=== PATIENT | male | born 2005 | race Caucasian/White ===

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

== ENCOUNTER 2024-04-22 07:53 | Outpatient (REF) | payer BC, SELFPAY ==
[2024-04-22 23:41] LABS: Campylobacter PCR Negative (Negative); Salmonella PCR Negative (Negative); Shiga Toxin PCR Negative (Negative); Shigella/Enteroinvasive Ecoli Negative (Negative)
[2024-04-27 00:29] LABS: Calprotectin <50.0 mcg/g
== END 2024-04-22 07:54 | disposition home or self-care (01) ==
LOC: LBN 07:53
PROVIDERS: Visit Provider Pediatrics
DX: K50.818 Crohn's disease of both small and large intestine with other complication (principal); R19.7 Diarrhea, unspecified
CPT/HCPCS: 87493; 87505; 83630; 83993; 87177

== ENCOUNTER 2024-10-24 12:12 | Outpatient (CLI) | payer BC, SELFPAY ==
[2024-10-24 11:46] LABS: Abs Immature Grans 0.01 10^3/uL (0.0-0.06); Absolute Basophil Count 0.06 10^3/uL (0.0-0.2); Absolute Eosinophil Count 0.72 10^3/uL (0.0-0.7); Absolute Lymphocyte Count 2.36 10^3/uL (1.2-3.4); Absolute Monocyte Count 0.52 10^3/uL (0.1-0.8); Absolute Neutrophil Count 3.44 10^3/uL (1.2-6.7); Basophils % 0.8 %; Eosinophils % 10.1 %; HCT 46.2 % (40.0-50.0); HGB 15.3 g/dL (13.5-17.5); Immature Grans % 0.1 %; Lymphocytes % 33.2 %; MCH 30.1 pg (27.0-33.0); MCHC 33.1 % (32.0-36.0); MCV 91 fL (80-95); MPV 8.9 fL (8.0-11.0); Monocytes % 7.3 %; Neutrophils % 48.5 %; Platelet Count 237 10^3/uL (130-400); RBC 5.08 10^6/uL (4.36-5.78); RDW 12.2 % (11.8-14.1); RDW-SD 40.7 fL; WBC 7.11 10^3/uL (4.4-10.8)
[2024-10-24 12:01] LABS: ESR 1 mm/hr (0-15)
[2024-10-24 13:35] LABS: Iron 126 ug/dL (65-175); Total Iron Binding Capacity 308 ug/dL (250-450); Transferrin Sat 41 % (20-55)
[2024-10-24 13:59] LABS: ALT 18 U/L (16-63); AST 16 U/L (15-37); Albumin 4.4 g/dL (3.4-5.0); Alkaline Phosphatase 93 U/L (46-116); Anion Gap 5.3 mmol/L (3-11); BUN 13 mg/dL (7-18); Bilirubin, Total 0.43 mg/dL (0.2-1.0); CO2 31.7 mmol/L (21.0-32.0); Calcium 9.7 mg/dL (8.5-10.1); Chloride 100 mmol/L (98-107); Ferritin 129 ng/mL (26-388); Folate 3.2 ng/mL (8.6-20.0); Glucose 87 mg/dL (74-106); Potassium 4.1 mmol/L (3.5-5.1); Sodium 137 mmol/L (136-145); Total Protein 8.3 g/dL (6.4-8.2); Vitamin B12 324 pg/mL (193-986); Vitamin D 25 Total 23.5 ng/mL (30-100)
[2024-10-24 14:35] LABS: C-Reactive Protein < 0.50 mg/dL (<or=0.5)
== END 2024-10-24 12:13 | disposition home or self-care (01) ==
LOC: LBO 12:51
PROVIDERS: Visit Provider Pediatrics Pediatric Gastroenterology
DX: K50.919 Crohn's disease, unspecified, with unspecified complications (principal)
CPT/HCPCS: 36415; 80053; 82306; 85652; 82607; 82728; 82746; 83540; 83550; 85025; 86140

== ENCOUNTER 2025-06-26 13:30 | Outpatient (CLI) | payer OTHER, SELFPAY ==
[2025-06-26 13:38] LABS: Abs Immature Grans 0.02 10^3/uL (0.0-0.06); HCT 50.1 % (40.0-50.0); HGB 17.2 g/dL (13.5-17.5); Immature Grans % 0.2 %; MCH 31.2 pg (27.0-33.0); MCHC 34.3 % (32.0-36.0); MCV 91 fL (80-95); MPV 9.0 fL (8.0-11.0); Platelet Count 248 10^3/uL (130-400); RBC 5.51 10^6/uL (4.36-5.78); RDW 11.8 % (11.8-14.1); RDW-SD 39.4 fL; WBC 8.55 10^3/uL (4.4-10.8)
[2025-06-26 14:05] LABS: ESR < 1 mm/hr (0-15)
[2025-06-26 14:36] LABS: ALT 26 U/L (16-63); AST 17 U/L (15-37); Albumin 4.3 g/dL (3.4-5.0); Alkaline Phosphatase 77 U/L (46-116); Anion Gap 7.5 mmol/L (3-11); BUN 21 mg/dL (7-18); Bilirubin, Total 1.1 mg/dL (0.2-1.0); CO2 29.5 mmol/L (21.0-32.0); Calcium 9.5 mg/dL (8.5-10.1); Chloride 101 mmol/L (98-107); Estimated GFR 125.39 (mL/min/1.73m2); Ferritin 228 ng/mL (26-388); Folate 5.8 ng/mL (8.6-20.0); Glucose 95 mg/dL (74-106); Potassium 4.5 mmol/L (3.5-5.1); Sodium 138 mmol/L (136-145); Total Protein 8.1 g/dL (6.4-8.2); Vitamin B12 328 pg/mL (193-986); Vitamin D 25 Total 29 ng/mL (30-100)
[2025-06-26 15:07] LABS: Iron 283 ug/dL (65-175); Total Iron Binding Capacity 343 ug/dL (250-450); Transferrin Sat 83 % (20-55)
[2025-06-26 17:52] LABS: C-Reactive Protein < 0.50 mg/dL (<or=0.5)
[2025-06-29 16:25] LABS: Adalimumab QN with Reflex Ab 12.1 mcg/mL
== END 2025-06-26 13:31 | disposition home or self-care (01) ==
LOC: LBO 13:31
PROVIDERS: Visit Provider Pediatrics Pediatric Gastroenterology
DX: K50.813 Crohn's disease of both small and large intestine with fistula (principal)
CPT/HCPCS: 36415; 80053; 82306; 83520; 85652; 82607; 82728; 82746; 83540; 83550; 85025; 86140

== ENCOUNTER 2025-10-24 16:35 | Emergency (ER) | payer OTHER, SELFPAY ==
[2025-10-24] VITALS (9 sets, daily range): BP systolic 142–157; BP diastolic 64–80; PULSE 73–123; RESP 12–25; TEMP 36.7; O2SAT 97–99
--- NOTE | 2025-10-24 18:00 | DI.CT_ITS ---
Exam(s) CT PELVIC W EXAM: CT PELVIC W CLINICAL HISTORY: perirectal abscess, hx of fistula. TECHNIQUE: Imaging Protocol: Axial computed tomography images with coronal and sagittal reformatted images were created and reviewed. CONTRAST MATERIAL: Intravenous: Omnipaque 350 Contrast volume: 75 ml Contrast route:IV - Oral: no COMPARISON: No exams were available for comparison FINDINGS: Bladder: No gross wall thickening. No stones.No evidence of mass. Bowel: No obstruction or bowel wall thickening. Peritoneal cavity: No ascites, collection or mesenteric inflammatory response. Reproductive: Unremarkable. Vasculature: No evidence of aortic or iliac artery aneurysm. Bones: No acute findings. Soft tissues: There is a right-sided Gaviota rectal abscess measuring 2.2 x 5.2 x 2.5 cm extending inferior from the perirectal region into the right gluteal fold. There is some edema more inferiorly in the right gluteal fold. IMPRESSION: Right-sided perirectal abscess measuring 2.2 x 5.2 x 2.5 cm. No abnormality seen within the pelvis. Findings called to the ER provider. RADIATION DOSE DELIVERED: Total DLP DATA REPOSITORY: All CT scans at this facility are submitted to the National Radiology Data Registry (NRDR) Dose Index Registry (DIR) with the [employer] ([employer]). RADIATION OPTIMIZATION: All CT scans at this facility use at least one of these dose optimization techniques: automated exposure control; mA and/or kV adjustment per patient size (includes targeted exams where dose is matched to clinical indication); or iterative reconstruction.
[2025-10-24 18:37] LABS: Abs Immature Grans 0.04 10^3/uL (0.0-0.06); HCT 44.2 % (40.0-50.0); HGB 14.9 g/dL (13.5-17.5); Immature Grans % 0.3 %; MCH 30.1 pg (27.0-33.0); MCHC 33.7 % (32.0-36.0); MCV 89 fL (80-95); MPV 8.9 fL (8.0-11.0); Platelet Count 245 10^3/uL (130-400); RBC 4.95 10^6/uL (4.36-5.78); RDW 11.9 % (11.8-14.1); RDW-SD 38.5 fL; WBC 12.17 10^3/uL (4.4-10.8)
[2025-10-24] MEDS: Omnipaque 350 MG/ML 100 ML BTL IJ (18:42)
[2025-10-24] MEDS: Normal Saline Flush 10 ML SYR IVP (18:42)
[2025-10-24] MEDS: Normal Saline - Diluent 50 ML VIAL IJ (18:42)
[2025-10-24 18:48] LABS: ESR 9 mm/hr (0-15)
[2025-10-24 18:55] LABS: Lipase 36 U/L (<53)
[2025-10-24 18:56] LABS: C-Reactive Protein 3.54 mg/dL (<=0.50)
[2025-10-24 18:57] LABS: ALT 12 U/L (10-49); AST 16 U/L (<34); Albumin 4.7 g/dL (3.2-5.0); Alkaline Phosphatase 78 U/L (46-116); Anion Gap 6.4 mmol/L (3-11); BUN 11 mg/dL (9-23); Bilirubin, Total 0.60 mg/dL (0.2-1.2); CO2 29.6 mmol/L (20.0-31.0); Calcium 9.9 mg/dL (8.3-10.6); Chloride 103 mmol/L (98-107); Glucose 95 mg/dL (74-106); Potassium 3.6 mmol/L (3.5-5.1); Sodium 139 mmol/L (136-145); Total Protein 7.9 g/dL (5.7-8.2)
--- NOTE | 2025-10-24 19:13 | ED.GENADUL_ITS ---
Discharge Plan Disposition Patient Disposition: Home Condition: Stable Discharge Details Clinical Impression: Perirectal abscess Primary Care Provider: Unknown,Unknown ED Provider: Ford Samson Home Meds and New Rx's Prescriptions: New ciprofloxacin HCl 500 mg tablet 500 mg PO BID 7 Days Qty: 14 0RF metronidazole 500 mg tablet 500 mg PO TID 7 Days Qty: 21 0RF No Action adalimumab-adbm 40 mg/0.4 mL pen injector kit 40 mg SUBCUT Q14D Discharge Instructions Instructions: Ciprofloxacin (Systemic), Metronidazole (Systemic), Abscess Incision and Drainage ED Additional Instructions: You were seen in the emergency department for a perirectal abscess in the setting of chronic Crohn's disease, we are starting you on 2 different antibiotics to treat any further exacerbations of this abscess to prevent worsening infection, you underwent incision and drainage by general surgery here in the ER under conscious sedation, they placed some packing in the abscess cavity, please remove this packing tomorrow night by just pulling on the tail that is hanging out, you need to follow-up with GI and colorectal surgery for chronic care of this problem, return to the ER for any worsening signs of infection like fever, nausea vomiting. Stand Alone Forms: Portal Information Discharge Data Discharge Date/Time-TO BE ENTERED AT DEPARTURE: 10/24/25 21:07 HPI General Date/Time Provider Initiated Documentation: 10/24/25 16:59 . HPI Narrative: 20 year-old male presents to ED today by POV/ambulating with his mother with a chief complaint of possible perirectal abscess in complex Crohn's history with onset for the past 9 months at site of an old fistula with Seton drain. Quality described as painful area to R buttcheek, no radiation to fever, constipation, active drainage, abdominal pain, nausea/vomiting. Severity is described as severe to palpation. Palliating factors include nothing specific. Provoking factors include sitting, pressure to area. Events leading up to the incident/Associated Symptoms: Patient is in process of switching from pediatric GI at [facility] to adult, and does attend college far from [place] and is home for break. Patient not anticoagulated. Related Data Home Medications Medication Instructions Recorded Confirmed adalimumab-adbm 40 mg/0.4 mL 40 mg subcut Q14D 10/24/ 5 10/24/25 subcutaneous pen kit ciprofloxacin HCl 500 mg tablet 500 mg PO BID 7 days # 14 tabs 10/24/25 metronidazole 500 mg tablet 500 mg PO TID 7 days #21 t abs 10/24/25 Previous Rx's Medication Instructions Recorded ciprofloxacin HCl 500 mg tablet 500 mg PO BID 7 days # 14 tabs 10/24/25 metronidazole 500 mg tablet 500 mg PO TID 7 days #21 t abs 10/24/25 Allergies Allergy/AdvReac Type Severity Reaction Status Date / Time No Known Allergies Allergy Unverified 10/24/25 16:59 General Stated Complaint: Cellulitis KRISTAN: 3 Review of Systems All systems reviewed & are unremarkable except as noted in HPI and below Exam Narrative Exam Narrative: GENERAL APPEARANCE: Well-nourished, non-toxic, awake and alert, atraumatic, no acute distress. SKIN: Warm, pink, dry, swelling to right buttock in the perirectal area with significant induration, no ayala erythema, no active drainage HEAD: Normocephalic, atraumatic, normal hair distribution for gender/age. EYES: Normal conjunctiva, no exudates on lids/lashes. ENT: Nares patent, no circumoral cyanosis, no facial swelling NECK: Supple, trachea midline, painless cervical ROM. LUNGS/CHEST: Lungs CTA bilaterally- no rhonchi/rales/wheezes diffusely, non- labored respirations, normal A/P diameter, symmetrical expansion, no chest wall deformity HEART (CV/PV): Regular rate and rhythm without murmur, no peripheral edema, no JVD. ABDOMEN: Soft, non-distended, no guarding, no tenderness MSK: Normal ROM, no swelling/deformity to bilateral UEs or LEs, moving all extremities without weakness, no cyanosis, spine midline without tenderness, normal curvature. NEURO: Mental Status AAOx4 - alert to person, place, time, events No facial droop, no forehead involvement. Motor: No focal weakness - strength 5/5 in bilateral UEs and LEs, proximal and distal, symmetric. Sensory: sensation intact to light touch globally. Gait normal: patient ambulated without ataxia into ED room. PSYCH: euthymic, cooperative, pleasant, appropriate speech Course Vital Signs Vital signs: Vital Signs Temperature 36.7 C 10/24/25 16:49 Pulse 87 10/24/25 16:49 Respiratory Rate 14 10/24/25 16:49 Blood Pressure 142/77 H 10/24/25 16:49 Pulse Oximetry 97 10/24/25 16:49 Temperature 36.7 C 10/24/25 19:03 Temperature Source Oral 10/24/25 19:03 Pulse 87 10/24/25 19:03 Respiratory Rate 14 10/24/25 19:03 Blood Pressure 142/77 H 10/24/25 19:03 Blood Pressure Position Sitting 10/24/25 19:03 Pulse Oximetry 97 10/24/25 19:03 Oxygen Delivery Method Room Air 10/24/25 19:03 Oxygen Flow Rate 0 10/24/25 19:03 Pain Level 7 10/24/25 19:03 Lab/Test Results Lab/Test Results: Laboratory Tests Range/Units 10/24/25 18:25 WBC (4.4-10.8) 10^3/uL 12.17 H RBC (4.36-5.78) 10^6/uL 4.95 Hgb (13.5-17.5) g/dL 14.9 Hct (40.0-50.0) % 44.2 MCV (80-95) fL 89 MCH (27.0-33.0) pg 30.1 MCHC (32.0-36.0) % 33.7 RDW (11.8-14.1) % 11.9 Plt Count (130-400) 10^3/uL 245 MPV (8.0-11.0) fL 8.9 Immature Gran % % 0.3 Neutrophils % % 70.7 Lymphocytes % % 16.8 Monocytes % % 9.4 Eosinophils % % 2.5 Basophils % % 0.3 Nucleated RBC % (0.0-0.3) % 0.2 Absolute Neutrophils (1.2-6.7) 10^3/uL 8.60 H Absolute Lymphocytes (1.2-3.4) 10^3/uL 2.04 Absolute Monocytes (0.1-0.8) 10^3/uL 1.14 H Absolute Eosinophils (0.0-0.7) 10^3/uL 0.30 Absolute Basophils (0.0-0.2) 10^3/uL 0.04 ESR (0-15) mm/hr 9 Sodium (136-145) mmol/L 139 Potassium (3.5-5.1) mmol/L 3.6 Chloride (98-107) mmol/L 103 Carbon Dioxide (20.0-31.0) mmol/L 29.6 Anion Gap (3-11) mmol/L 6.4 BUN (9-23) mg/dL 11 Creatinine (0.73-1.18) mg/dL 0.82 Est GFR (CKD-EPI 2020) (mL/min/1.73m2) 118.32 Glucose (74-106) mg/dL 95 Calcium (8.3-10.6) mg/dL 9.9 Total Bilirubin (0.2-1.2) mg/dL 0.60 AST (<34) U/L 16 ALT (10-49) U/L 12 Alkaline Phosphatase (46-116) U/L 78 C-Reactive Protein (<=0.50) mg/dL 3.54 H Total Protein (5.7-8.2) g/dL 7.9 Albumin (3.2-5.0) g/dL 4.7 Lipase (<53) U/L 36 Medical Decision Making This dictation utilizes [id number] dictation software and may contain unedited grammatical errors. 20 year-old male presents to ED today by POV/ambulating with his mother with a chief complaint of possible perirectal abscess in complex Crohn's history with onset for the past 9 months at site of an old fistula with Seton drain. Quality described as painful area to R buttcheek, no radiation to fever, constipation, active drainage, abdominal pain, nausea/vomiting. Severity is described as severe to palpation. Palliating factors include nothing specific. Provoking factors include sitting, pressure to area. Events leading up to the incident/Associated Symptoms: Patient is in process of switching from pediatric GI at [facility] to adult, and does attend college far from [place] and is home for break. Patients' medical history: Crohn's disease. Family and social history: attends college, active in sports. Pertinent exam findings / vital signs include swelling to right buttock in the perirectal area with significant induration, no ayala erythema, benign abdomen, benign cardiopulmonary status, afebrile. Differential / pathologies of concern include perirectal abscess, fistula, cellulitis, complication of Crohn's. Diagnostic studies of: - CBC, CMP, CRP/ESR, lipase, CT pelvis with contrast. - CBC shows a nonspecific leukocytosis of 12.1 without left shift - CMP without actionable abnormality - CRP 3.54, ESR normal at 9 - Lipase negative - CT shows a right sided perirectal abscess measuring 2.2 x 5 x 2.5 from inferior perirectal region into the right gluteal fold Interventions of: - Discussed with surgery on-call Dr. Nuno, who performed incision and drainage under conscious sedation performed by Dr. Goodwin, please see their notes. - Rx for cipro/flagyl ED Course/Assessment/Plan: 20-year-old male presents with acute on chronic possible abscess to his right gluteal fold area in the setting of Crohn's disease with former fistula to this area, has had seton drain in the past, he has immune suppressed on Humira. CT shows fairly large perirectal abscess and general surgery did drain it here under conscious sedation he was monitored as he recovered from ketamine and there was no complications, I started him on Cipro and Flagyl and stressed strict return criteria for any worsening signs of infection and counseled on the need for follow-up with GI and colorectal. Patient and patient's mother verbalized understanding of this plan. Findings not consistent with fistula, severe Crohn's flare, large cellulitis to gluteal region. Disposition of Perirectal Abscess. Patient verbalized understanding of the plan and return to ED criteria and engaged in shared decision making. Medical Records Medical records reviewed: Yes I reviewed the patient's medical records. Imaging Data Radiologic Study: Attestation: I personally reviewed and interpreted this imaging study as follows: Imaging: CT Scan Radiologist's impression: EXAM: CT PELVIC W CLINICAL HISTORY: perirectal abscess, hx of fistula. TECHNIQUE: Imaging Protocol: Axial computed tomography images with coronal and sagittal reformatted images were created and reviewed. CONTRAST MATERIAL: Intravenous: Omnipaque 350 Contrast volume: 75 ml Contrast route:IV - Oral: no COMPARISON: No exams were available for comparison FINDINGS: Bladder: No gross wall thickening. No stones.No evidence of mass. Bowel: No obstruction or bowel wall thickening. Peritoneal cavity: No ascites, collection or mesenteric inflammatory response. Reproductive: Unremarkable. Vasculature: No evidence of aortic or iliac artery aneurysm. Bones: No acute findings. Soft tissues: There is a right-sided Gaviota rectal abscess measuring 2.2 x 5.2 x 2.5 cm extending inferior from the perirectal region into the right gluteal fold. There is some edema more inferiorly in the right gluteal fold. IMPRESSION: Right-sided perirectal abscess measuring 2.2 x 5.2 x 2.5 cm. No abnormality seen within the pelvis. Findings called to the ER provider. Lab Data Lab results reviewed: Yes I reviewed the patient's lab results. Labs: Laboratory Tests Range/Units 10/24/25 18:25 WBC (4.4-10.8) 10^3/uL 12.17 H RBC (4.36-5.78) 10^6/uL 4.95 Hgb (13.5-17.5) g/dL 14.9 Hct (40.0-50.0) % 44.2 MCV (80-95) fL 89 MCH (27.0-33.0) pg 30.1 MCHC (32.0-36.0) % 33.7 RDW (11.8-14.1) % 11.9 Plt Count (130-400) 10^3/uL 245 MPV (8.0-11.0) fL 8.9 Immature Gran % % 0.3 Neutrophils % % 70.7 Lymphocytes % % 16.8 Monocytes % % 9.4 Eosinophils % % 2.5 Basophils % % 0.3 Nucleated RBC % (0.0-0.3) % 0.2 Absolute Neutrophils (1.2-6.7) 10^3/uL 8.60 H Absolute Lymphocytes (1.2-3.4) 10^3/uL 2.04 Absolute Monocytes (0.1-0.8) 10^3/uL 1.14 H Absolute Eosinophils (0.0-0.7) 10^3/uL 0.30 Absolute Basophils (0.0-0.2) 10^3/uL 0.04 ESR (0-15) mm/hr 9 Sodium (136-145) mmol/L 139 Potassium (3.5-5.1) mmol/L 3.6 Chloride (98-107) mmol/L 103 Carbon Dioxide (20.0-31.0) mmol/L 29.6 Anion Gap (3-11) mmol/L 6.4 BUN (9-23) mg/dL 11 Creatinine (0.73-1.18) mg/dL 0.82 Est GFR (CKD-EPI 2020) (mL/min/1.73m2) 118.32 Glucose (74-106) mg/dL 95 Calcium (8.3-10.6) mg/dL 9.9 Total Bilirubin (0.2-1.2) mg/dL 0.60 AST (<34) U/L 16 ALT (10-49) U/L 12 Alkaline Phosphatase (46-116) U/L 78 C-Reactive Protein (<=0.50) mg/dL 3.54 H Total Protein (5.7-8.2) g/dL 7.9 Albumin (3.2-5.0) g/dL 4.7 Lipase (<53) U/L 36 PFSH All Active Problems (Updated 10/25/25 @ 15:48 by Charisse Nuno MD) Crohn's disease (Chronic) Perirectal abscess (Acute) Social History Smoking/Tobacco Use Status: Current every day Tobacco Type: e-cigarettes Smoking risk assessment performed?: Yes Alcohol Intake: current Alcohol Intake frequency: 3 or more drinks per day Drug use: Occasionally Substance use type: marijuana Details: smoke marijuana every other days PAWSS Have you Been Recently Intoxicated or Drunk Within the Last 30 days?: Yes Have you Ever Experienced Previous Episodes of Alcohol Withdrawal?: No Have you ever Experienced Withdrawal Seizures?: No Have you ever Experienced Delirium Tremens(DT)s?: No Have you ever undergone Alcohol Rehabilitation Treatment (i.e, inpt ot outpatient treatment programs)?: No Have you ever Experienced Blackouts?: No Have you ever Combined Alcohol with other Downers within the last 90 days?: No Have you ever Combined Alcohol with any other Substance of Abuse during the last 90 days?: No Positive Blood Alcohol level on Presentation? [PCS.BAL]: No Evidence of Increased Autonomic Activity (i.e. HR>120, tremor, sweating, agitation, nausea)?: No Result: 1
--- NOTE | 2025-10-24 19:51 | SCONE_ITS ---
Date of service: 10/24/25 Time of Service: 21:30 Assessment and Plan Assessment and plan (1) Perirectal abscess: Status: Acute Assessment and plan: Patient is a 20-year-old male with past medical history significant for Crohn's who presented to the emergency department with concern for a perirectal abscess. He notes that he had a previous fistula that was draining until this weekend and it closed up acutely. He says since this time he has had pain in this area and is concern for perirectal abscess. In the emergency department he was hemodynamically stable and afebrile. On exam he had tenderness to the right side of the anus with an area of fluctuance over the presumed previous fistula site. He had a CT pelvis concerning for a perirectal abscess. Given these findings it was discussed with him that he should undergo incision and drainage of this abscess. It did appear that the abscess likely formed in the setting of the recently closed fistula. Incision and drainage of this abscess in the emergency department with conscious sedation was performed without difficulty. The incision was made over the site of the previous fistula opening where the fluctuance was greatest. Please see procedure note above. He tolerated the procedure well. A small amount of packing was placed following the procedure and he was instructed for ongoing packing removal and wound care. He was prescribed a course of antibiotics from the emergency department. He was instructed to follow-up with gastroenterology and colorectal surgery given concern for fistula and need for possible further intervention. (2) Crohn's disease: Status: Chronic History of Present Illness Narrative: Patient is a 20-year-old male with past medical history significant for Crohn's who presented to the emergency department with concern for a perirectal abscess. He states that he has had prior perirectal procedures including the drainage of 2 prior perirectal abscesses. He also notes at one time he had a seton placed for a fistula. He states that these procedures were around 8 years ago. He notes that since this time he has had an ongoing fistula with occasional drainage. He notes that this fistula closed on Thursday acutely and since that time he has had increasing perianal pain. He endorses subjective fevers. He denies chills, nausea, vomiting, abdominal pain, chest pain, shortness of breath. He denies any previous abdominal surgery. He does note that he is on Humira however this dose has been decreased due to multiple subcutaneous abscesses. He states that he is currently a college student and does not live in [place] at this time. He does note however that he has not seen GI since his last visit with pediatric gastroenterology at [facility]. He is working on obtaining an adult certified shorthand reporter. Review of Systems Constitutional Constitutional: Denies chills and Denies weakness Cardiovascular Cardiovascular: Denies chest pain and Denies dyspnea Respiratory Respiratory: Denies dyspnea Gastrointestinal Gastrointestinal: Denies abdominal pain, Denies nausea and Denies vomiting Genitourinary Genitourinary: Denies dysuria Neurologic Neurologic: Denies weakness PFSH All Active Problems (Updated 10/25/25 @ 15:48 by Charisse Nuno MD) Crohn's disease (Chronic) Perirectal abscess (Acute) Social History Smoking/Tobacco Use Status: Current every day Tobacco Type: e-cigarettes Smoking risk assessment performed?: Yes Alcohol Intake: current Alcohol Intake frequency: 3 or more drinks per day Drug use: Occasionally Substance use type: marijuana Details: smoke marijuana every other days Exam Narrative Exam Narrative: General: Well appearing, no acute distress. Skin: Good turgor, no visible rashes or lesion HEENT: Normocephalic, atraumatic CV: Regular rate Lungs: Bilateral equal chest rise, non-labored breathing Abdomen: Non-distended Extremities: Warm, well perfused Neurologic: No focal deficits Psychiatric: Alert and oriented, normal mood and affect Rectal: External exam with evidence of erythema and area of fluctuance over previous fistula opening, tenderness to palpation Results Last Vital Signs Temp 36.7 C 10/24/25 19:03 Pulse 87 10/24/25 19:03 Resp 14 10/24/25 19:03 BP 142/77 H 10/24/25 19:03 Pulse Ox 97 10/24/25 19:03 Labs 10/24/25 18:25 10/24/25 18:25 Labs: Laboratory Results - last 24 hr 10/24/25 18:25 WBC 12.17 H RBC 4.95 Hgb 14.9 Hct 44.2 MCV 89 MCH 30.1 MCHC 33.7 RDW 11.9 Plt Count 245 MPV 8.9 Immature Gran % 0.3 Neutrophils % 70.7 Lymphocytes % 16.8 Monocytes % 9.4 Eosinophils % 2.5 Basophils % 0.3 Nucleated RBC % 0.2 Absolute Neutrophils 8.60 H Absolute Lymphocytes 2.04 Absolute Monocytes 1.14 H Absolute Eosinophils 0.30 Absolute Basophils 0.04 ESR 9 Sodium 139 Potassium 3.6 Chloride 103 Carbon Dioxide 29.6 Anion Gap 6.4 BUN 11 Creatinine 0.82 Est GFR (CKD-EPI 2020) 118.32 Glucose 95 Calcium 9.9 Total Bilirubin 0.60 AST 16 ALT 12 Alkaline Phosphatase 78 C-Reactive Protein 3.54 H Total Protein 7.9 Albumin 4.7 Lipase [address] scan report/results: report reviewed and image reviewed Procedures Abscess I/D Site: jennifer-rectal Side (if applicable): right Sedation/analgesia: other (See ED attending note ) Anesthetic used: lidocaine 1% Technique: incised with #11 blade Packing used?: plain (1/4 inch plain packing) Complications: other (None. )
[2025-10-24] MEDS: Ketamine 500 MG/10 ML VIAL 155 MG IVP (20:04)
[2025-10-24] MEDS: Lidocaine 1% Pres-Free W/EPI 1/200,000 30 ML VIAL (20:06)
--- NOTE | 2025-10-24 20:18 | W.ED.PROC ---
Date of service: 10/24/25 Time of Service: 20:18 Procedures Procedural Sedation Indication: incision and drainage of absess ASA Class: II (crohns) Time of Last PO Intake: 16:00 Preparation: cardiac cath lab radiology technologist applied, pulse oximeter, capnometry used and supplemental O2 applied Ketamine: IV Ketamine dose (mg): 100 Patient Tolerated Procedure: well Complications: none
--- NOTE | 2025-10-24 20:33 | RESPIRATORY ---
Rt called for conscious sedation for abscess. Pt placed on monitors, etco2, bp every 5 minutes and all emergency supplies setup. Pt's vitals remained wnl, etco2 @ 46 consistently. Pt woke up from sedation easily and calmly. Mother of pt back in room, vitals upon leaving the room spo2-99, etco2 46, Bp 151/64, Hr 73. Pt awake and conversing, no respiratory concerns.
[2025-10-24] MEDS: Ciprofloxacin 500 MG TAB PO (20:56)
[2025-10-24] MEDS: metroNIDAZOLE 500 MG TAB PO (20:56)
== END 2025-10-24 21:07 | disposition home or self-care (01) ==
PROVIDERS: Emergency Provider Physician Assistant
DX: K61.1 Rectal abscess (principal); K50.90 Crohn's disease, unspecified, without complications
CPT/HCPCS: 36415; 46040; 80053; 83690; 85652; 99156; 99285; 72193; 85025; 86140; 99284; J2004; J3490